=== PATIENT | female | born 2000 | race Caucasian/White ===

== ENCOUNTER 2019-06-20 07:09 | Emergency (ER) | payer BC ==
[~2019-06-20] VITALS: Ht 162.6 cm; Wt 63.6 kg
[~2019-06-20 07:09] MED LIST: NO HOME MEDICATIONS
[2019-06-20 07:19] VITALS: TEMP 97.8
[2019-06-20] MEDS ORDERED: SPRINTEC 35 MCG1 TAB PO (07:23)
[2019-06-20 07:44] LABS: BASO % 0.4 % (0.0-2.0); EOS # 0.2 (0.0-0.7); GRAN # 3.9 (1.4-6.5); GRAN % 57.7 % (42.2-75.2); HEMATOCRIT 40.7 % (35.0-45.0); HEMOGLOBIN 13.8 g/dl (12.0-15.0); LYMPH # 1.8 (1.2-3.4); LYMPH % 26.8 % (20.0-51.0); MEAN CELL VOLUME 91 fl (80.0-95.0); MEAN CORPUSCULAR HEMOGLOBIN 31 pg (26.0-32.0); MEAN CORPUSCULAR HGB CONC 34 g/dl (33.0-37.0); MEAN PLATELET VOLUME 9.6 fl (7.4-10.4); MONO # 0.8 (0.1-0.6); MONO % 11.8 % (1.7-9.3); PLATELET COUNT 231 K/mm3 (130-400); RED BLOOD COUNT 4.46 M/mm3 (4.10-5.30); REDCELL DISTRIBUTION WIDTH-CV 11.9 % (11.5-14.5)
[2019-06-20 07:56] LABS: ALBUMIN 4.2 gm/dL (3.5-5.0); BILIRUBIN,TOTAL 0.3 mg/dL (0.0-1.0); C-REACTIVE PROTEIN 0.6 mg/dL (0.0-0.9); CALCIUM 9.2 mg/dL (8.4-10.2); CREATININE, serum 0.68 (0.52-1.25); POTASSIUM 3.9 mmol/L (3.4-5.0); TOTAL PROTEIN 7.3 gm/dL (6.4-8.2)
[2019-06-20 08:17] LABS: COLLECTION METHOD CLEAN CATCH
[2019-06-20 08:24] LABS: MUCOUS Present /lpf; PH 6 (5-8); SQUAMOUS EPITHELIAL 0-2 /hpf; URINE APPEARANCE Clear; URINE BACTERIA None Seen /hpf; URINE BILIRUBIN Negative (NEGATIVE); URINE BLOOD Negative (NEGATIVE); URINE COLOR Yellow; URINE GLUCOSE Negative (NEGATIVE); URINE KETONE Negative (NEGATIVE); URINE LEUKOCYTE ESTERASE Negative (NEGATIVE); URINE NITRATE Negative (NEGATIVE); URINE PROTEIN(semi-quant) Negative (NEGATIVE); URINE RBC 0-2 /hpf; URINE UROBILINOGEN Negative (NEGATIVE)
[2019-06-20] MEDS ORDERED: ZOFRAN ODT8 MG PO (10:36)
[2019-06-20 11:11] VITALS: BP 105/65; PULSE 88
== END 2019-06-20 11:14 | disposition home or self-care (01) ==
LOC: COL.ER 07:09
PROVIDERS: Emergency Medicine
DX: N83.9 Noninflammatory disorder of ovary, fallopian tube and broad ligament, unspecified (principal)
CPT/HCPCS: J1885; J2270; J2405; J7030; Q9967

== ENCOUNTER 2021-03-30 17:56 | Emergency (ER) | payer MEDICAID ==
[~2021-03-30] VITALS: Ht 162.6 cm; Wt 78.2 kg
[~2021-03-30 17:56] MED LIST changes: +SPRINTEC 35 MCG1 TAB PO; +ZOFRAN ODT8 MG PO
[2021-03-30] MEDS ORDERED: NORCO 325 MG-51 TAB PO (19:23)
[2021-03-30] MEDS ORDERED: CEPHALEXIN500 M1 PO (19:23)
[2021-03-30 20:09] VITALS: BP 107/65; PULSE 102; TEMP 98
== END 2021-03-30 20:11 | disposition home or self-care (01) ==
LOC: COL.ER 17:56
DX: L02.31 Cutaneous abscess of buttock (principal); L03.317 Cellulitis of buttock

== ENCOUNTER → 2021-04-05 | Outpatient (CLI) | payer MEDICAID ==
[~2021-04-05] VITALS: Ht 162.6 cm; Wt 78.2 kg
[~2021-04-05] MED LIST changes: +CEPHALEXIN500 M1 PO; +NORCO 325 MG-51 TAB PO
[2021-04-05 15:15] VITALS: BP 109/64; PULSE 95; TEMP 98.2
== END ==
LOC: COL.ER 15:09 → EDSTATUS 15:28
DX: L02.31 Cutaneous abscess of buttock (principal); L03.317 Cellulitis of buttock

== ENCOUNTER 2021-09-29 13:58 | Inpatient (IN) | payer MEDICAID ==
[~2021-09-29] VITALS: Ht 162.6 cm; Wt 98.6 kg
--- NOTE | 2021-09-30 22:45 | NUR ---
G1 at 41 weeks and 1 day arrives to unit ambulatory for scheduled induction of labor. Pt oriented to room, bed in low and locked position, call light within reach. Pt reports feeling good movement, denies contractions, vaginal bleeding, or LOF. Pt denies headaches, blurry vision, or RUQ pain. Clean gown on. US and toco explained and applied. Plan of care reviewed with patient and spouse. Reviewed plan with patient, all questions answered. SVE /-3, membranes intact
[2021-09-30 23:00] VITALS: BP 138/90; PULSE 94; TEMP 98.3
[2021-10-01] VITALS (78 sets, daily range): BP systolic 103–173; BP diastolic 56–114; PULSE 67–126; TEMP 97.1–98.8
--- NOTE | 2021-10-01 | NUR ---
Consents reviewed with patient and spouse. IV started in left hand with 1 attempt. Admission labs obtained off IV start. Lactated ringers infusing to gravity.
--- NOTE | 2021-10-01 00:05 | NUR ---
2315- LATE DECELERATION LASTING FOR APPROXIMATELY 5 MINUTES DROPPING INTO THE 70'S WHILE PT WAS IN HANDS AND KNEES. PT REPOSITIONED INTO [facility] FOR SVE 2320- SVE OF COMPLETE/+1. REPOSITIONED INTO [facility], FHT'S RECOVERED TO BASELINE OF 140. 2322- DR. MELENDEZ NOTIFED OF IMPENDING DELIVERY, ON HER WAY TO THE HOSPITAL. 2329- PT STARTS PUSHING WITH THIS NURSE. RECURRENT LATE DECELS NOTED WITH PUSHING. 2330- ALMAZAN DC'D , 250MLS OUT. 2347- DR. MELENDEZ IN ROOM FOR DELIVERY 2354- SPONTANEOUS VAGINAL DELIVERY OF VIABLE BABY BOY. BABY TO MOTHER'S ABDOMEN. CORD CLAMPED AND CUT BY DR. MELENDEZ, BABY TO RADIANT WARMER FOR ASSESSMENT, BABY CARES ASSUMED BY Lilliaan WONG RN 0000- SPONTANEOUS DELIVERY OF INTACT PLACENTA. PITOCIN STARTED AT 333ML/HR PER PROTOCOL. DR MELENDEZ BEGINS REPAIR OF BILATERAL VAGINAL WALL LACERATIONS. 0005- RECOVERY BEGINS.
[2021-10-01 00:27] LABS: HEMATOCRIT 37.1 % (37.0-47.0); HEMOGLOBIN 12.8 g/dl (12.5-16.0); MEAN CELL VOLUME 90 fl (80.0-100.0); MEAN CORPUSCULAR HEMOGLOBIN 31 pg (27-31); MEAN CORPUSCULAR HGB CONC 35 g/dl (33.0-37.0); MEAN PLATELET VOLUME 10.6 fl (7.4-10.4); PLATELET COUNT 220 K/mm3 (130-400); RED BLOOD COUNT 4.12 M/mm3 (4.10-5.30); REDCELL DISTRIBUTION WIDTH-CV 12.9 % (11.5-14.5)
[2021-10-01 00:47] LABS: BAND 1 % (0-10); EOSINOPHIL 2 % (0-4); LYMPHOCYTE 24 % (20.0-51.0); NEUTROPHILS 71 % (42.0-75.2)
[2021-10-01 01:21] LABS: TRICYCLIC ANTIDEPRESS URINE NEGATIVE
--- NOTE | 2021-10-01 01:30 | NUR ---
Category 1 FHR tracing obtained. 25 mcg cytotec placed to posterior fornix of vagina. Pt positioned to wedge left. Reviewed plan of care to remain on left side for 1 hour and on bedrest for an additional hour. Spouse and patients mother supportive at bedside. Call light within reach.
--- NOTE | 2021-10-01 06:30 | NUR ---
[id number]: THIS NURSE ASSUMES CARE. BEDSIDE REPORT WITH GWEN MCKENZIE. PT UP IN RESTROOM GETTING READY FOR THE DAY PRIOR TO STARTING PITOCIN. OFF MONITORS DURING THIS TIME. PT DENIES PAIN WITH CONTRACTIONS BUT "I CAN FEEL WHEN I'M HAVING THEM." WILL PLACE PT ON EFM/TOCO FOLLOWING RESTROOM BREAK.
--- NOTE | 2021-10-01 08:00 | NUR ---
AT BEDSIDE ROUNDING ON PT, REVIEWS PLAN IN DEPTH WITH PT. REVIEWS POC. PT AGREEABLE WITH CURRENT POC. WILL RESUME WITH IOL. CATEGORY 1 EFM TRACING AT THIS TIME. CONTRACTIONS Q3 MIN APART, MODERATE WITH PALPATION. PT DENIES PAIN WITH CONTRACTIONS.
--- NOTE | 2021-10-01 08:30 | NUR ---
[id number]: INTERMITTENT EFM/TOCO TRACING DUE TO MATERNAL POSITIONING AND HABITUS. PT REPORTING SEVERE PAIN AND UNABLE TO GET COMFORTABLE, MULTIPLE POSITION CHANGES AT THIS TIME. PLACED BACK ON EFM/TOCO SOON PT WAS ABLE TO TOLERATE THIS NURSE RESITUATING EFM/TOCO BANDS.
--- NOTE | 2021-10-01 11:32 | NUR ---
[id number]: PT EXPERIENCING SEVERE PAIN WITH CONTRACTIONS AND UNABLE TO REMAIN ON EFM/TOCO AT THIS TIME DUE TO MATERNAL POSITIONING EFFORTS AND HABITUS. THIS NURSE AT BEDSIDE COACHING PT THROUGH CONTRACTIONS. PLACED BACK ON CONTINUOUS MONITORING SOON PT WAS ABLE TO GAIN BACK CONTROL OF LABOR SYMPTOMS AND THIS NURSE WAS ABLE TO READJUST BANDS.
--- NOTE | 2021-10-01 12:20 | NUR ---
AT BEDSIDE. PT REPORTS FEELING LIKE "SHE PEED HERSELF" 30 MINUTES AGO. AMNITEST PER , POSITIVE FOR AMNIOTIC FLUID. SROM @ 1150. CLEAR FLUID NOTED AT THIS TIME. PT AFEBRILE AND VITAL SIGNS STABLE. CATEGORY 1 EFM TRACING AT THIS TIME.
--- NOTE | 2021-10-01 14:02 | NUR ---
PT TO SITTING POSITION ON EDGE OF BED FOR EPIDURAL PLACEMENT. DIFFICULTY TRACING EFM/TOCO DUE TO MATERNAL POSITIONING AND HABITUS. 1402: TEST DOSE PER TRAM HELTON CRNA
--- NOTE | 2021-10-01 14:15 | NUR ---
[id number]: BRADYCARDIA WITH REURRENT LATE DECELERATIONS AT THIS TIME. PITOCIN OFF. PT PLACED IN KNEE CHEST POSITION TO RECOVER. HEART RATE BEGINS TO RECOVER. SEE PHYSICIAN NOTIFICATION.
--- NOTE | 2021-10-01 17:40 | NUR ---
AT BEDSIDE. SVE /-1. BLOODY SHOW. VORB TO CONTINUE INCREASING PITOCIN PER PROTOL AND Q30 MINUTE POSITION CHANGES. NO FURTHER ORDERS AT THIS TIME.
--- NOTE | 2021-10-01 18:35 | NUR ---
PT PLACED IN LL POSITION ON PEANUT BALL. SVE 6-7/90/-1 AT THIS TIME. BLOODY SHOW. CATEGORY 1 EFM TRACING. PITOCIN INFUSING AT 6MU PER PROTOCOL. CONTRACTIONS Q2-3.5 MINUTES, FIRM WITH PALPATION. 600CC CLEAR YELLOW URINE DRAINED FROM ALMAZAN CATHETER. BEDSIDE REPORT AND CARE ASSUMED BY GWEN DOOLEY AT THIS TIME.
[2021-10-02] VITALS (11 sets, daily range): BP systolic 116–131; BP diastolic 61–84; PULSE 78–121; TEMP 97.7–99.4
--- NOTE | 2021-10-02 03:05 | NUR ---
EPIDURAL CATHETER REMOVED, TIP INTACT. PT UP TO BATHROOM, ABLE TO VOID 100MLS. PT STATES SHE FEELS LIGHTHEADED AND DIZZY IN BATHROOM DURING PERICARE. WHEELCHAIR TO ROOM, GWEN GOMEZ AND JONAH IN ROOM TO ASSIST GETTING PATIENT TRANSFERRED FROM THE BATHROOM TO THE WHEELCHAIR. ICEPACK AND MESH UNDERWEAR APPLIED, CLEAN GOWN ON. PT TO VIA WHEELCHAIR. PT STATES THAT LIGHTHEADEDNESS HAS SUBSIDED UPON ARRIVAL TO . ORIENTED TO ROOM, INSTRUCTED PT TO CALL OUT WHEN SHE NEEDS TO USE THE BATHROOM NEXT, UNDERSTANDING VERBALIZED.
[2021-10-02] MEDS ORDERED: IBU800 M1 PO (08:36)
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
[2021-10-03 12:30] VITALS: BP 125/76; PULSE 86; TEMP 98
[2021-10-03 16:36] VITALS: BP 124/75; PULSE 86; TEMP 97.7
--- NOTE | 2021-10-03 20:15 | NUR ---
2017 BOYFRIEND HERE WITH PRESCRIPTION. READY TO GO TO BOARDER STATUS. TYLENOL 1000 MG PO GIVEN AT 1999. DISMISSAL PAPERWORK GONE OVER WITH NO QUESTIONS. BRACELET NUMBER CHECKED WITH BABY. DISMISSED TO BOARDER STATUS.
== END 2021-10-03 20:15 | disposition home or self-care (01) | DRG 806 ==
LOC: LDR 09-30 15:27 → OB 09-30 22:35 → LDR 09-30 22:35 → OB 10-02 03:15
PROVIDERS: ADMIT Student in an Organized Health Care Education/Training Program
PROC: 3E0P7VZ Introduction of Hormone into Female Reproductive, Via Natural or Artificial Opening (ICD-10-PCS; 2021-09-30)
PROC: 10E0XZZ Delivery of Products of Conception, External Approach (ICD-10-PCS; principal; 2021-10-01)
PROC: 0UQG7ZZ Repair Vagina, Via Natural or Artificial Opening (ICD-10-PCS; 2021-10-01)
PROC: 3E033VJ Introduction of Other Hormone into Peripheral Vein, Percutaneous Approach (ICD-10-PCS; 2021-10-01)
DX: O48.0 Post-term pregnancy (principal); O71.4 Obstetric high vaginal laceration alone; Z37.0 Single live birth; O40.3XX0 Polyhydramnios, third trimester, not applicable or unspecified; O35.8XX0 Maternal care for other (suspected) fetal abnormality and damage, not applicable or unspecified; O99.344 Other mental disorders complicating childbirth; F32.A Depression, unspecified; F41.3 Other mixed anxiety disorders; O34.13 Maternal care for benign tumor of corpus uteri, third trimester; D25.9 Leiomyoma of uterus, unspecified; O32.6XX0 Maternal care for compound presentation, not applicable or unspecified; O69.81X0 Labor and delivery complicated by cord around neck, without compression, not applicable or unspecified; Z3A.41 41 weeks gestation of pregnancy; Z86.16 Personal history of COVID-19
CPT/HCPCS: J1200; J2590; J7120

== ENCOUNTER → 2021-11-21 | Outpatient (CLI) | payer MEDICAID ==
[~2021-11-21] MED LIST changes: +IBU800 M1 PO
== END ==
LOC: ZCOL.LAB 16:43
DX: L05.01 Pilonidal cyst with abscess (principal)

== ENCOUNTER 2023-06-03 03:57 | Outpatient (CLI) | payer MEDICAID ==
[~2023-06-03] VITALS: Ht 162.6 cm; Wt 82.5 kg
--- NOTE | 2023-06-03 04:00 | NUR ---
To unit via wheelchair for assessment, accompanied by significant other. Oriented to room, monitor, plan of care. Pt reports "I've been throwing up for 2 hours. I can't even keep water down."
[2023-06-03 04:10] VITALS: TEMP 98.3
[2023-06-03 04:30] VITALS: BP 128/72; PULSE 99; TEMP 98.3
[2023-06-03 04:50] VITALS: PULSE 94
[2023-06-03 05:00] LABS: TRICYCLIC ANTIDEPRESS URINE NEGATIVE (NEGATIVE)
[2023-06-03 05:05] LABS: HEMATOCRIT 38.3 % (37.0-47.0); MEAN CELL VOLUME 91 fl (80.0-100.0); MEAN CORPUSCULAR HEMOGLOBIN 31 pg (27-31); MEAN CORPUSCULAR HGB CONC 34 g/dl (33.0-37.0); MEAN PLATELET VOLUME 9.9 fl (7.4-10.4); PLATELET COUNT 192 K/mm3 (130-400); RED BLOOD COUNT 4.21 M/mm3 (4.10-5.30); REDCELL DISTRIBUTION WIDTH-CV 13.4 % (11.5-14.5)
[2023-06-03 05:20] VITALS: BP 112/62; PULSE 93
[2023-06-03 05:29] LABS: ALBUMIN 3.1 gm/dL (3.5-5.0); BILIRUBIN,TOTAL 0.3 mg/dL (0.2-1.2); CALCIUM 9.5 mg/dL (8.4-10.2); CREATININE, serum 0.56 mg/dL (0.57-1.11); POTASSIUM 3.6 mmol/L (3.5-4.5); TOTAL PROTEIN 6.3 gm/dL (6.2-8.1)
[2023-06-03 05:40] VITALS: PULSE 87
[2023-06-03 06:03] LABS: BAND 6 % (0-10); EOSINOPHIL 2 % (0-4); NEUTROPHILS 80 % (42.0-75.2)
[2023-06-03 06:05] LABS: LYMPHOCYTE 8 % (20.0-51.0); PLATELET ESTIMATE NORMAL (NORMAL)
[2023-06-03] MEDS ORDERED: LEXAPRO20 MG PO (06:07)
[2023-06-03] MEDS ORDERED: PRENATAL TABLET PO (06:08)
--- NOTE | 2023-06-03 06:15 | NUR ---
Off monitor, up to bathroom. Pt states "I feel so much better"
[2023-06-03 07:15] VITALS: TEMP 98.2
--- NOTE | 2023-06-03 07:45 | NUR ---
PT VS STABLE, EFM CAT 1, NO LOF, IRRITABLE CTX THAT PT REPORTS NOT FEELING, NO BLOODY SHOW OR VAGINAL BLEEDING, AND REPORTS POSITIVE MOVEMENT. SIGNED DISCHARGE AND UNDERSTANDING OF DISCHARGE ORDERS PER , TAKE TYLENOL FOR PAIN, BRAT DIET OF BLAND FOOD, DRINK ADEQUATE FLUIDS/WATER, AND CALL WITH ANY ADDITIONAL QUESTIONS OR CONCERNS. PT AMBULATORY OFF UNIT WITH MOTHER.
== END 2023-06-03 07:45 | disposition home or self-care (01) ==
LOC: LDRO 03:57 → LDR 04:55 → LDRO 07:45
PROVIDERS: Student in an Organized Health Care Education/Training Program
DX: Z34.93 Encounter for supervision of normal pregnancy, unspecified, third trimester (principal); Z3A.30 30 weeks gestation of pregnancy
CPT/HCPCS: OP; J2405; J7120